=== PATIENT | male | born 1945 | race Caucasian/White ===

== ENCOUNTER 2018-11-01 18:03 | Inpatient (IN) | payer MEDICARE, BC ==
[~2018-11-01] VITALS: Ht 198.1 cm; Wt 95.5 kg
[2018-11-01] MEDS ORDERED: SODIUM CHLORIDE 0.9% 1000ML 1,000 ML IV STA (18:51)
[2018-11-01] MEDS ORDERED: MORPHINE SULFATE 2 MG/ML SYR IV NR (19:00)
[2018-11-01] MEDS ORDERED: ONDANSETRON HCL INJ 2 MG/ML VIAL IV NR (19:00)
[2018-11-01 19:03] LABS: BASOPHILS % 0.4 % (0.0-1.0); EOSINOPHILS # (AUTO) 0.2 (0.0-0.4); EOSINOPHILS % 2.1 % (0.0-6.0); HEMOGLOBIN 13.2 g/dL (14.0-18.0); LYMPHOCYTES # (AUTO) 1.4 (1.0-3.2); LYMPHOCYTES % 18.8 % (18.0-39.1); MEAN CORPUSCULAR HEMOGLOBIN 30.3 pg (28-32); MEAN CORPUSCULAR HGB CONC 33.8 g/dL (31-35); MEAN CORPUSCULAR VOLUME 89.7 fL (81-99); MONOCYTES # (AUTO) 0.5 (0.2-0.8); MONOCYTES % 7.2 % (4.4-11.3); NEUTROPHILS # (AUTO) 5.1 (2.1-6.9); NEUTROPHILS % 70.7 % (38.7-80.0); PLATELET COUNT 215 x10e3/uL (140-360); RED BLOOD COUNT 4.35 x10e6/uL (4.3-5.7)
[2018-11-01 19:08] LABS: INR 0.95; PROTHROMBIN TIME 13.6 seconds (11.9-14.5)
[2018-11-01 19:09] LABS: PARTIAL THROMBOPLASTIN TIME 29.8 seconds (23.8-35.5)
[2018-11-01 19:18] LABS: ALBUMIN 3.4 g/dL (3.5-5.0); ALBUMIN/GLOBULIN RATIO 1.1 (0.8-2.0); ANION GAP 24.7 mmol/L (8-16); CALCIUM 9.2 mg/dL (8.4-10.2); CREATININE, SERUM 16.07 mg/dL (0.72-1.25); MAGNESIUM 2.3 MG/DL (1.3-2.1); POTASSIUM 4.7 mmol/L (3.5-5.1)
[2018-11-01 19:37] LABS: BILIRUBIN,URINE NEGATIVE (NEGATIVE); CLARITY,URINE CLEAR (CLEAR); COLOR,URINE YELLOW (YELLOW); KETONES,URINE NEGATIVE (NEGATIVE); LEUKOCYTE ESTERASE ,URINE NEGATIVE (NEGATIVE); NITRITE,URINE NEGATIVE (NEGATIVE); PROTEIN,URINE DIPSTICK NEGATIVE (NEGATIVE); URINE UROBILINOGEN 0.2 mg/dL (0.2 - 1)
[2018-11-01 19:46] LABS: AMORPHOUS SEDIMENT,URINE FEW (FEW); BACTERIA,URINE FEW /HPF; MUCUS,URINE RARE (RARE); WBC,URINE (MAN) 0-5 /HPF (0-5)
--- NOTE | 2018-11-01 19:54 | Diagnostic Imaging Report ---
EXAMINATION: CHEST SINGLE (PORTABLE) COMPARISON: None INDICATION: Weakness, constipation, incontinence DISCUSSION: Frontal view of the chest obtained at 1935 hours. HEART AND MEDIASTINUM: The heart is normal in size. The aorta is ectatic. Central pulmonary vasculature is mildly prominent. LINES: None. LUNGS: The lungs are well inflated and clear. No mass or infiltrate. PLEURA: No pleural effusion or pneumothorax. BONES AND SOFT TISSUES: No focal osseous lesion. The soft tissues are normal. IMPRESSION: Mild vascular congestion. No acute pulmonary process. Signed by: Dr. Candace Quigley MD on 11/01/2018 7:50 PM
[2018-11-01] MEDS ORDERED: HYDROCODONE/APAP 7.5MG-325MG 1 EA TAB PO NR (20:03)
[2018-11-01] MEDS ORDERED: TAMSULOSIN HCL0.4 MG (20:03)
--- NOTE | 2018-11-01 20:03 | Diagnostic Imaging Report ---
CT Abdomen and Pelvis without contrast INDICATION: Weakness, constipation, incontinence TECHNIQUE: Thin collimation axial images obtained from the diaphragm to the level of the pubic symphysis without nonionic intravenous contrast. Dose reduction techniques used: Automated exposure control, adjustment of the mAs and/or kVp according to patient size, standardized low-dose protocol, and/or iterative reconstruction technique. RADIATION DOSE: Total DLP: 730.9 mGy*cm Estimated effective dose: (DLP x 0.015 x size factor) mSv CTDIvol has been reviewed. It is below the limits set by the Radiation Protocol Committee (RPC). COMPARISON: None. ABDOMEN FINDINGS: Lung Bases: Clear. The visualized portion of the mediastinum is normal. Liver: Decreased attenuation. No mass. Gallbladder: Absent. No ductal dilatation. Pancreas: Atrophic. No mass or ductal dilatation. Spleen: Normal size and contains a calcified granuloma. Adrenal Glands: No evidence for mass. Kidneys: Right: No intrarenal calculus. Exophytic cyst in the lateral interpolar cortex measures 4.4 x 3.8 cm. The collecting system is dilated. No perinephric fluid collection. Left: Hyperattenuating eccentric focus in the renal pelvis measures 8 mm.. The renal collecting system is distended. A linear hyperattenuating focus in the infundibulum of the lower pole measures 5 mm. Neither have the usual appearance of calculi. There are multiple renal cysts with an exophytic lower pole cyst measuring 6.6 cm. No perinephric fluid collections. There is bilateral inflammation of the pararenal fat planes. Lymph Nodes: No enlarged abdominal or retroperitoneal lymph nodes.. Aorta: Ectatic and diffusely calcified PELVIS FINDINGS: Bowel: Stomach: Normal. Small Bowel: Normal in caliber with normal wall thickness. Large Bowel: Diverticulosis coli. No associated inflammation. No large bowel dilatation. Appendix: Normal. Bladder: Collapsed around a Hogan catheter. The prostate gland is enlarged.. Ureters: The right ureter is mildly distended throughout its course without evidence of calculus. The left ureter is mildly distended throughout its course, but less so compared to the right ureter. Again, no evidence of calculus. Trace amount of presacral edema. No loculated fluid collection. Bones: Degenerative changes of the spine superimposed on diffuse scoliosis. No focal osseous lesions. Soft tissues: There are bilateral vasectomy clips. Postoperative changes of the left inguinal region suggestive hernia repair. No hernia recurrence.. IMPRESSION: 1. Bilateral hydroureteronephrosis without etiology on this exam. 2. Subcentimeter high attenuating foci in an infundibulum of the left kidney and the left renal pelvis. These may represent calculi but urothelial tumors cannot be excluded. 3. Bilateral renal cysts. Bilateral perinephric inflammation may be the result of volume replenishment or infection. Please correlate with urinalysis/urine culture. 4. Steatosis. Diverticulosis coli. No evidence for bowel obstruction or inflammation. Signed by: Dr. Candace Quigley MD on 11/01/2018 7:59 PM
--- NOTE | 2018-11-01 20:04 | NUR ---
MEDS GIVEN PER DR'S ORDERS AND PT HAS TOLERATED WELL.
[2018-11-01] MEDS ORDERED: CIALIS20 MG (21:01)
[2018-11-01] MEDS ORDERED: ADCIRCA20 MG (21:01)
[2018-11-01] MEDS ORDERED: FENTANYL CITRATE/PF 100MCG/2 ML INJ IV NR (21:02)
[2018-11-01] MEDS ORDERED: FENTANYL CITRATE/PF 100MCG/2 ML INJ ONE (21:09)
[2018-11-01] MEDS: SODIUM CHLORIDE 0.9% 1000ML 1,000 ML IV SCH (21:20)
--- NOTE | 2018-11-01 21:20 | NUR ---
PAIN MEDS GIVEN --25MCG OF FENTANYL AND IVF STARTED AND PT HAS TOLERATED WELL.
--- OUTSIDE RECORDS SUMMARY | 2018-11-01 21:27 | XMS REPORT ---
Author Author [facility] Address Unknown Phone Unavailable Care Team Providers Care Marketing Executive Name Role Phone Pippa ISRAEL Unavailable Unavailable Problems This patient has no known problems. Allergies, Adverse Reactions, Alerts This patient has no known allergies or adverse reactions. Medications This patient has no known medications. Results Test Description Test Time Test Comments Text Results Atomic Results Result Comments CT ABDOMEN/PELVIS WO 2018-11-01 19:51:00 [facility] [address] [address] Patient Name: HILARIO GARCIA MR #: [id number] : 1945 Age/Sex: 73/M Req #: [id number] Adm Physician: Ordered by: RUBEN ISRAEL MD Report #: [id number] Location: ER Room/Bed: Procedure: [id number] CT/CT ABDOMEN/PELVIS WO Exam Date: 11/01/18 Exam Time: 1919 REPORT STATUS: Signed CT Abdomen and Pelvis without contrast INDICATION: Weakness, constipation, incontinence TECHNIQUE: Thin collimation axial images obtained from the diaphragm to the level of the pubic symphysis without nonionic intravenous contrast. Dose reduction techniques used: Automated exposure control, adjustment of the mAs and/or kVp according to patient size, standardized low-dose protocol, and/or iterative reconstruction technique. RADIATION DOSE: Total DLP: 730.9 mGy*cm Estimated effective dose: (DLP x 0.015 x size factor) mSv CTDIvol has been reviewed. It is below the limits set by the Radiation Protocol Committee (RPC). COMPARISON: None. ABDOMEN FINDINGS: Lung Bases: Clear. The visualized portion of the mediastinum is normal. Liver: Decreased attenuation. No mass. Gallbladder: Absent. No ductal dilatation. Pancreas: Atrophic. No mass or ductal dilatation. Spleen: Normal size and contains a calcified granuloma. Adrenal Glands: No evidence for mass. Kidneys: Right: No intrarenal calculus. Exophytic cyst in the lateral interpolar cortex measures 4.4 x 3.8 cm. The collecting system is dilated. No perinephric fluid collection. Left: Hyperattenuating eccentric focus in the renal pelvis measures 8 mm.. The renal collecting system is distended. A linear hyperattenuating focus in the infundibulum of the lower pole measures 5 mm. Neither have the usual appearance of calculi. There are multiple renal cysts with an exophytic lower pole cyst measuring 6.6 cm. No perinephric fluid collections. There is bilateral inflammation of the pararenal fat planes. Lymph Nodes: No enlarged abdominal or retroperitoneal lymph nodes.. Aorta: Ectatic and diffusely calcified PELVIS FINDINGS: Bowel: Stomach: Normal. Small Bowel: Normal in caliber with normal wall thickness. Large Bowel: Diverticulosis coli. No associated inflammation. No large bowel dilatation. Appendix: Normal. Bladder: Collapsed around a Hogan catheter. The prostate gland is enlarged.. Ureters: The right ureter is mildly distended throughout its course without evidence of calculus. The left ureter is mildly distended throughout its course, but less so compared to the right ureter. Again, no evidence of calculus. Trace amount of presacral edema. No loculated fluid collection. Bones: Degenerative changes of the spine superimposed on diffuse scoliosis. No focal osseous lesions. Soft tissues: There are bilateral vasectomy clips. Postoperative changes of the left inguinal region suggestive hernia repair. No hernia recurrence.. IMPRESSION: 1. Bilateral hydroureteronephrosis without etiology on this exam. 2. Subcentimeter high attenuating foci in an infundibulum of the left kidney and the left renal pelvis. These may represent calculi but urothelial tumors cannot be excluded. 3. Bilateral renal cysts. Bilateral perinephric inflammation may be the result of volume replenishment or infection. Please correlate with urinalysis/urine culture. 4. Steatosis. Diverticulosis coli. No evidence for bowel obstruction or inflammation. Signed by: Dr. Ulysses Quigley MD on 11/01/2018 7:59 PM Dictated By: ULYSSES QUIGLEY MD 58 Transcribed By: VIRGILIO on 11/01/181958 COPY TO: RUBEN ISRALE MD CHEST SINGLE (PORTABLE) 2018-11-01 19:49:00 [address] [address] Patient Name: HILARIO GARCIA MR #: [id number] : 1945 Age/Sex: 73/M Req #: [id number] Adm Physician: Ordered by: RUBEN ISRAEL MD Report #: [id number] Location: ER Room/Bed: Procedure: [id number] DX/CHEST SINGLE (PORTABLE) Exam Date: 11/01/18 Exam Time: 1929 REPORT STATUS: Signed EXAMINATION: CHEST SINGLE (PORTABLE) CHARLENE RISON: None INDICATION: Weakness, constipation, incontinence DISCUSSION: Frontal view of the chest obtained at 1935 hours. HEART AND MEDIASTINUM: The heart is normal in size. The aorta is ectatic. Central pulmonary vasculature is mildly prominent. LINES: None. LUNGS: The lungs are well inflated and clear. No mass or infiltrate. PLEURA: No pleural effusion or pneumothorax. BONES AND SOFT TISSUES: No focal osseous lesion. The soft tissues are normal. IMPRESSION: Mild vascular congestion. No acute pulmonary process. Signed by: Dr. Ulysses Quigley MD on 11/01/2018 7:50 PM Dictated By: ULYSSES QUIGLEY MD 49 Transcribed By: VIRGILIO on 11/01/181949 COPY TO: RUBEN ISRALE MD
[2018-11-01] MEDS ORDERED: LIDOCAINE JELLY 2% 10ML URO-JET TOP ONE (21:30)
--- NOTE | 2018-11-01 21:35 | NUR ---
UROJET INJECTED TO PENIS FOR PENILE PAIN, PT TOELRATED WELL.
--- NOTE | 2018-11-01 22:21 | NUR ---
reported off to leslee lakhani for continuity of care
--- NOTE | 2018-11-01 22:21 | NUR ---
REPORT RC'D FROM Marissa WHITFIELD RN. ASSUMED CARE OF PT AT THIS TIME.
[2018-11-01] MEDS ORDERED: ONDANSETRON HCL INJ 2 MG/ML VIAL ONE (23:43)
[2018-11-01] MEDS: MORPHINE SULFATE INJ 4 MG/ML INJ IV PRN ×2 (23:46→23:47)
[2018-11-01] MEDS ORDERED: ONDANSETRON HCL INJ 2 MG/ML VIAL IV STA ×2 (23:46)
[2018-11-02] VITALS (10 sets, daily range): BP systolic 130–169; BP diastolic 77–97
[2018-11-02] MEDS: SODIUM CHLORIDE 0.9% 1000ML 1,000 ML IV SCH ×3 (00:35→20:42)
--- NOTE | 2018-11-02 03:37 | NUR ---
Report received from ER nurse Ryan.Patient admitted in unit @0115 by stretcher. Patient received alert/oriented x3,denied pain and no SOB. Respiration even and unlabored.V/S WNL. Head to toe assessment completed. No skin breakdown noted. Patient son in the room. Patient instructed to call for help as needed,verbalized and understand. Bed in lower position,locked. Will continue to monitor.
[2018-11-02] MEDS ORDERED: MORPHINE SULFATE 2 MG/ML SYR IV PRN (04:00)
--- NOTE | 2018-11-02 04:04 | NUR ---
Received patient calm in bed, vitals stable no complaints raised, on Dilaudid and Tylenol prn for pain
[2018-11-02 06:57] LABS: BASOPHILS % 0.4 % (0.0-1.0); EOSINOPHILS # (AUTO) 0.2 (0.0-0.4); EOSINOPHILS % 2.3 % (0.0-6.0); HEMATOCRIT 35.1 % (38.2-49.6); HEMOGLOBIN 11.9 g/dL (14.0-18.0); LYMPHOCYTES # (AUTO) 2.1 (1.0-3.2); LYMPHOCYTES % 26.7 % (18.0-39.1); MEAN CORPUSCULAR HEMOGLOBIN 30.1 pg (28-32); MEAN CORPUSCULAR HGB CONC 33.9 g/dL (31-35); MEAN CORPUSCULAR VOLUME 88.6 fL (81-99); MONOCYTES # (AUTO) 0.8 (0.2-0.8); MONOCYTES % 9.9 % (4.4-11.3); NEUTROPHILS # (AUTO) 4.7 (2.1-6.9); NEUTROPHILS % 60.3 % (38.7-80.0); PLATELET COUNT 190 x10e3/uL (140-360); RED BLOOD COUNT 3.96 x10e6/uL (4.3-5.7); RED CELL DISTRIBUTION WIDTH 13.1 % (11.7-14.4)
[2018-11-02 07:13] LABS: ALBUMIN 3.1 g/dL (3.5-5.0); ALBUMIN/GLOBULIN RATIO 1.1 (0.8-2.0); ANION GAP 15.2 mmol/L (8-16); CALCIUM 8.7 mg/dL (8.4-10.2); CREATININE, SERUM 4.39 mg/dL (0.72-1.25); MAGNESIUM 1.8 MG/DL (1.3-2.1); PHOSPHORUS 3.5 MG/DL (2.3-4.7); POTASSIUM 4.2 mmol/L (3.5-5.1)
--- NOTE | 2018-11-02 07:13 | NUR ---
Report given to upcoming nurse Delia, walking round done.
--- NOTE | 2018-11-02 07:19 | NUR ---
RECEIVED PATIENT AT THIS TIME STATES "IF I DONT GET ANYTHING ELSE FOR PAIN IM GOING TO SCREAM" THIS RN AT NURSES STATION. PT SON AT NURSES STATION STATES "CAN WE PAGE THE DOCTOR LIKE WHEN ARE YOU GONNA DO IT," THIS RN EXPLAINED THAT IT WAS ALREADY BEING DONE " SON STATES OKAY WELL THEN DO IT NOW" THIS RN ASKED SON TO STEP OUT OF THE NURSES STATION THAT IT WAS ALREADY BEING DONE. SPOKE TO SRIDHAR RECEIVE ORDER TO CHANGE PAIN MEDICINE. CALLED PHARMACY ASKED TO VERIFY. WILL MEDICATE ACCORDING TO MAR.
[2018-11-02] MEDS: HYDROMORPHONE 2MG/ML 2 MG/ML ML IV PRN ×7 (07:25→23:43)
[2018-11-02] MEDS ORDERED: HYDROCODONE/APAP 10MG-325MG TAB PO PRN (09:00)
[2018-11-02] MEDS ORDERED: HYDRALAZINE HCL 20 MG/ML VIAL IV PRN (09:00)
[2018-11-02] MEDS ORDERED: ACETAMINOPHEN 325 MG TAB PO PRN (09:00)
[2018-11-02] MEDS: TAMSULOSIN HCL 0.4 MG CAP PO SCH (09:22)
--- NOTE | 2018-11-02 11:15 | NUR ---
PER YESTERDAY WHEN DE LA PAZ WAS PLACED 2400 WAS COLLECTED.
[2018-11-02] MEDS: ONDANSETRON HCL INJ 2 MG/ML VIAL IV PRN (13:46)
[2018-11-02] MEDS: ACETAMINOPHEN/CODEINE 300MG - 30MG TAB PO PRN ×2 (13:46→22:12)
--- NOTE | 2018-11-02 15:53 | NUR ---
Nutrition Intervention Note RD Recommendation(s) for Physician: -Continue cardiac diet as ordered -Rec Ensure Compact BID to promote PO intake -Encourage PO and hydration Plan of Care: RD following, monitoring for tolerance and adequacy Nutrition reason for involvement: Nutrition Risk Trigger MST RD Assessment 11/02 Chart reviewed. 73yo M, who is admitted for abdominal pain with vomiting. Pt was asleep during my visit. Son on bedside to provide hx. Pt lives alone in an apartment. Son states pt has not been eating much for over 2 weeks. Pt had a vomiting episode with abdominal pain yesterday, therefore son brought him into the hospital. Son doesnt know if pt lost any weight recently. UBW ~215 225lb. No complains of nausea or vomiting today. LBM 11/01. Pt only ate a few bites of breakfast this morning, per son. Pt has teeth implants but no chewing or swallowing difficulty reported. Pt has chronic tremors and cant hold utensils very well. RD will order chopped diet and finger foods upon son request. Will continue to monitor and follow. Principal Problems/Diagnoses: ARF, metabolic acidosis PMH: No H&P in chart GI: LBM 11/01 Skin: intact Labs: (11/02) Na 135 L, BUN 31 H, Creatinine 4.39 H Meds: zofran, IVF Ht: 68in Wt: 230lb BMI: 35kg/m2 IBW: 154lb Malnutrition Evaluation (11/02/18) The patient does not meet criteria for a specified degree of malnutrition at this time. Will re-evaluate at follow-up as appropriate. Nutrition Prescription (Diet Order): cardiac diet Diet Adequacy: Not meeting calorie needs, Not meeting protein needs Diet Education Needs Assessment: Diet education not indicated. Nutrition Care Level: low Nutrition Diagnosis: Inadequate oral intake related to current medical status as evidenced by poor appetite and PO intake. Goal: Patient will meet 75-100% of estimated needs by follow up Progress: N/A Interventions: Mineral-modified diet, Commercial beverage Monitoring/Evaluation: Total energy intake, Total protein intake, Modified diet, Liquid supplement, Weight change Signed: Miesha Warner MS, RD, LD
--- NOTE | 2018-11-02 19:30 | NUR ---
Received patient hemodynamically stable, notes previously entered in error for , 4am.
--- NOTE | 2018-11-02 20:15 | Diagnostic Imaging Report ---
Lumbar spine two views CPT code: 25612 Indication: Back pain, cancer (not specified) Technique: A.P. and lateral views of the lumbar spine obtained Comparison: CT abdomen/pelvis 11/01/2018 Findings: There are five non rib bearing vertebral bodies. There is mild scoliosis, similar to previous exam. No rotational component. The transverse processes are intact. The vertebral body heights are well maintained. There are prominent lateral osteophytes at L1 to and L2-3. Endplate osteophytes are also present in the remainder of the spine. There is diffuse disc space narrowing. No compression deformities. No focal osseous lesions. There is facet arthropathy at the lower levels. No abnormalities of the sacroiliac joints. The sacrum is normal. There is no evidence of subluxation. The bowel gas pattern is unremarkable. There are vascular calcifications throughout the aorta. Cholecystectomy clips are stable. IMPRESSION: Diffuse degenerative changes of the spine superimposed on mild scoliosis. No focal osseous lesions suggest metastasis. Bone scan or MRI are more sensitive modalities to detect osseous metastases or insufficiency fractures. Signed by: Dr. Candace Quigley MD on 11/02/2018 8:11 PM
--- NOTE | 2018-11-02 20:17 | Diagnostic Imaging Report ---
Sacrum and coccyx CPT code: 71509 History: Back pain, cancer (not specified) Comparison: CT abdomen/pelvis 11/01/2018 Findings: AP and lateral view of the sacrum and coccyx were obtained. No fractures or destructive changes were identified. There is facet arthropathy at the lower levels. No lytic or blastic lesions. IMPRESSION: No fracture or dislocation. No focal osseous lesions to suggest metastasis. Bone scan or MRI are more sensitive modalities to detect osseous metastases. Signed by: Dr. Candace Quigley MD on 11/02/2018 8:14 PM
--- NOTE | 2018-11-02 20:30 | NUR ---
patient taken for scheduled xray and brought back, given pain medicine, settled in bed
[2018-11-03] VITALS (11 sets, daily range): BP systolic 146–183; BP diastolic 62–97
--- NOTE | 2018-11-03 02:00 | NUR ---
patient calmly asleep in bed on prn medication for pain
[2018-11-03] MEDS: SODIUM CHLORIDE 0.9% 1000ML 1,000 ML IV SCH ×3 (03:30→20:03)
[2018-11-03] MEDS: HYDROMORPHONE 2MG/ML 2 MG/ML ML IV PRN ×2 (05:00→08:11)
[2018-11-03 05:26] LABS: BASOPHILS % 0.2 % (0.0-1.0); EOSINOPHILS # (AUTO) 0.1 (0.0-0.4); EOSINOPHILS % 1.4 % (0.0-6.0); HEMATOCRIT 36.5 % (38.2-49.6); HEMOGLOBIN 12.1 g/dL (14.0-18.0); LYMPHOCYTES # (AUTO) 1.3 (1.0-3.2); LYMPHOCYTES % 13.7 % (18.0-39.1); MEAN CORPUSCULAR HEMOGLOBIN 29.5 pg (28-32); MEAN CORPUSCULAR HGB CONC 33.2 g/dL (31-35); MONOCYTES # (AUTO) 0.9 (0.2-0.8); MONOCYTES % 10.3 % (4.4-11.3); NEUTROPHILS # (AUTO) 6.8 (2.1-6.9); NEUTROPHILS % 74.1 % (38.7-80.0); PLATELET COUNT 216 x10e3/uL (140-360); RED CELL DISTRIBUTION WIDTH 12.9 % (11.7-14.4)
[2018-11-03 05:38] LABS: ANION GAP 15.3 mmol/L (8-16); CALCIUM 8.7 mg/dL (8.4-10.2); CREATININE, SERUM 1.76 mg/dL (0.72-1.25); MAGNESIUM 1.8 MG/DL (1.3-2.1); POTASSIUM 4.3 mmol/L (3.5-5.1)
--- NOTE | 2018-11-03 07:05 | NUR ---
Handed over patient hemodynamically stable
[2018-11-03] MEDS: TAMSULOSIN HCL 0.4 MG CAP PO SCH ×2 (08:11→12:33)
[2018-11-03] MEDS: ONDANSETRON HCL INJ 2 MG/ML VIAL IV PRN ×2 (08:15→12:30)
[2018-11-03] MEDS ORDERED: HYDROCODONE/APAP 10MG-325MG TAB PO PRN (10:30)
[2018-11-03] MEDS ORDERED: MORPHINE SULFATE INJ 4 MG/ML INJ IV PRN (10:30)
[2018-11-03] MEDS ORDERED: BISACODYL 5 MG TAB EC PO PRN (10:30)
[2018-11-03] MEDS: AMLODIPINE BESYLATE 10 MG TAB PO SCH (12:33)
[2018-11-03] MEDS: POLYETHYLENE GLYCOL 3350 17 GM PACK PO SCH (16:08)
[2018-11-03] MEDS: ACETAMINOPHEN/CODEINE 300MG - 30MG TAB PO PRN ×2 (16:08→20:46)
[2018-11-03] MEDS: DOCUSATE SODIUM 100 MG CAP PO SCH (16:08)
--- NOTE | 2018-11-03 16:36 | NUR ---
PT Lurdes received. Visited pt but was asleep. Explained the purpose of the visit to his sister. Per sister, pt lives in a 2-story home and goes hunting every weekend. Active and (I). Pt woke up and stated that he does not want PT at this time. Informed nurse Nacny.
--- NOTE | 2018-11-03 19:30 | NUR ---
patient is awake alert oriented, no distress noted at this time, he is playing dominos with family member sitting on bed. vitals checked, will continue to monitor.
--- NOTE | 2018-11-03 20:52 | NUR ---
patient was calling asking for PRN Tylenol #3, complaining of pain. also he doesnt want to be awaken,he will call nurse around midnight when he is awaken for vitals signs to be checked. also he refuses the bed alarm to be turned on. farmer cath patent and draining, no distress noted, will continue to monitor.
--- NOTE | 2018-11-03 23:25 | NUR ---
checked patient blood pressure, its 172/87 now, patient refused to have PRN med for BP, he want to be checked again in 15 mins.
[2018-11-04] MEDS: ACETAMINOPHEN/CODEINE 300MG - 30MG TAB PO PRN (01:50)
[2018-11-04] MEDS: SODIUM CHLORIDE 0.9% 1000ML 1,000 ML IV SCH (04:42)
--- NOTE | 2018-11-04 04:42 | NUR ---
patient took off telemetry and refused to be put on back.
--- NOTE | 2018-11-04 05:15 | NUR ---
checked patient vitals, his blood pressure is 181/91 pulse 58. he refused BP med PRN, patient wants the nurse to come back and check it again later.
--- NOTE | 2018-11-04 05:17 | NUR ---
called and spoke with dr Ro, make him aware that patient has been refusing care, taking off telemetry and refused to have iv fluid on, he wanted to go home today. the MD ordered Ativan 1 mg iv now, and will re assess patient in the morning.
[2018-11-04 05:20] LABS: BASOPHILS % 0.5 % (0.0-1.0); EOSINOPHILS # (AUTO) 0.3 (0.0-0.4); EOSINOPHILS % 3.2 % (0.0-6.0); HEMATOCRIT 38.7 % (38.2-49.6); HEMOGLOBIN 12.8 g/dL (14.0-18.0); LYMPHOCYTES # (AUTO) 1.9 (1.0-3.2); LYMPHOCYTES % 23.9 % (18.0-39.1); MEAN CORPUSCULAR HEMOGLOBIN 29.4 pg (28-32); MEAN CORPUSCULAR HGB CONC 33.1 g/dL (31-35); MONOCYTES # (AUTO) 0.6 (0.2-0.8); MONOCYTES % 7.9 % (4.4-11.3); PLATELET COUNT 215 x10e3/uL (140-360); RED BLOOD COUNT 4.35 x10e6/uL (4.3-5.7); RED CELL DISTRIBUTION WIDTH 12.8 % (11.7-14.4)
[2018-11-04] MEDS ORDERED: LORAZEPAM INJ 2 MG/ML VIAL IV ONE (05:30)
[2018-11-04 05:43] LABS: ANION GAP 16.4 mmol/L (8-16); CALCIUM 8.9 mg/dL (8.4-10.2); CREATININE, SERUM 1.37 mg/dL (0.72-1.25); MAGNESIUM 2.2 MG/DL (1.3-2.1); POTASSIUM 4.4 mmol/L (3.5-5.1)
[2018-11-04 05:48] VITALS: BP 172/61
[2018-11-04 06:00] VITALS: BP 161/74
--- NOTE | 2018-11-04 06:57 | NUR ---
bedside reports given to upcoming nurse Howard RN, patient is awake alert oriented, stated pain level is zero, no distress noted, family member on bed side.
[2018-11-04 08:05] VITALS: BP 166/84
[2018-11-04] MEDS: TAMSULOSIN HCL 0.4 MG CAP PO SCH (08:25)
[2018-11-04] MEDS: DOCUSATE SODIUM 100 MG CAP PO SCH (08:25)
[2018-11-04] MEDS: POLYETHYLENE GLYCOL 3350 17 GM PACK PO SCH (08:25)
[2018-11-04] MEDS: AMLODIPINE BESYLATE 10 MG TAB PO SCH (08:26)
[2018-11-04] MEDS ORDERED: HYDROCODONE/APAP 10MG-325MG TAB PO PRN (08:45)
[2018-11-04] MEDS ORDERED: NIFEDIPINE CR 30 MG TAB PO SCH (09:15)
[2018-11-04] MEDS ORDERED: NIFEDIPINE ER30 M1 PO (09:21)
[2018-11-04] MEDS ORDERED: TYLENOL # 31 EA PO (09:21)
[2018-11-04] MEDS ORDERED: ONDANSETRON ODT8 MG PO (09:21)
[2018-11-04] MEDS ORDERED: COLACE100 M1 PO (09:21)
[2018-11-04 09:45] VITALS: BP 128/75
--- NOTE | 2018-11-04 09:58 | NUR ---
Pt given leg bag, extra caps, and Statlocks, demonstrated correct maintenance techniques. Pt verbalized understanding of meatal and andreia care at least twice a day, MD Santoyo paged, returned call. Notified that pt is to be discharged home, read chemistry labs with read back. MD Santoyo states that pt is okay to discharge, that he will not prescribe any additional meds, and that pt is to follow up in 1-2 weeks.
[2018-11-04 10:25] VITALS: BP 152/89
--- NOTE | 2018-11-04 20:25 | Discharge Summary ---
ADMISSION DIAGNOSES 1. Left kidney stone. 2. Acute kidney injury versus chronic kidney disease. 3. Hyponatremia. 4. Bradycardia. 5. Benign prostatic hypertrophy. DISCHARGE DIAGNOSES 1. Left kidney stone. 2. Acute kidney injury versus chronic kidney disease. 3. Hyponatremia. 4. Bradycardia. 5. Benign prostatic hypertrophy. 6. Rule out urinary tract infection. 7. Rule out bacteremia. 8. Hypermagnesemia. HISTORY: Patient has a history of BPH, hiatal hernia. SURGICAL HISTORY: Right inguinal hernia repair and cholecystectomy. FAMILY HISTORY: Patient's grandma had diabetes and patient's grandpa had cancer. SOCIAL HISTORY: Patient smokes 1 pack of cigarettes a day for 54 years. He occasionally drinks alcohol and smokes weed daily, about 2 to 3 joints per day. HOSPITAL COURSE: A 73-year-old male complains of bilateral lower back pain and bilateral lower quadrant abdominal pain, which was sharp, cramping, and constant for the last 2 weeks. He also admits to having difficulty urinating. He denies hematuria and fever. He denies history of kidney stones. On the day of discharge, the abdominal pain resolved after placing a Hogan, but the pain remains on the left lower back. He came to the ER after being persuaded by his son. On admission, patient was started on IV fluids. Chest x-rays showed mild vascular congestion. CT of the abdomen showed bilateral hydroureteronephrosis without etiology on this exam. Subcentimeter high attenuating foci in the bi-fundibulum of the left kidney and left renal pelvis. These may present calculi, but urothelial tumors cannot be excluded. Bilateral renal cyst steatosis. X-ray of the sacrum and coccyx showed no fracture or dislocation. No focal obvious lesions to suggest metastasis. Diffuse degenerative changes of the spine superimposed on mild scoliosis. No focal obtuse lesions suggest metastasis. Blood cultures were negative. Urine culture was negative. On admission, patient's creatinine was 16, GFR was 3. IV fluids were started on the very next day. The creatinine came down to 4.3 with GFR of 13. Urology was consulted who said to keep the Hogan in and follow up outpatient for studies in 2 to 3 weeks. Prior to discharge, patient was refusing any more IV fluids and barely asking for pain medicine. He will discharge home with family. He will resume home medicines plus Tylenol 3 p.r.n., Colace, nifedipine, and Zofran p.r.n. He will follow up with Dr. Christie in 2 to 3 weeks and primary care in 1 to 2 weeks. Patient and family understand discharge instructions and agree to plan. Vital signs stable. Patient afebrile. Dictated by: Katey Cruz NP Job#: [id number] RTY
== END 2018-11-04 10:43 | disposition home or self-care (01) | DRG 683 ==
LOC: ER 18:03 → ERHOLD 21:24 → IMCU 11-02 01:41
PROVIDERS: ADMIT Internal Medicine; ATTEND Internal Medicine
DX: N17.9 Acute kidney failure, unspecified (principal); E87.1 Hypo-osmolality and hyponatremia; N20.0 Calculus of kidney; N18.9 Chronic kidney disease, unspecified; R00.1 Bradycardia, unspecified; N40.1 Benign prostatic hyperplasia with lower urinary tract symptoms; R33.8 Other retention of urine; K44.9 Diaphragmatic hernia without obstruction or gangrene; E83.41 Hypermagnesemia; N13.30 Unspecified hydronephrosis; N28.1 Cyst of kidney, acquired; Z83.3 Family history of diabetes mellitus; Z80.9 Family history of malignant neoplasm, unspecified; Z28.21 Immunization not carried out because of patient refusal
CPT/HCPCS: 36415; 71045; 72100; 72220; 74176; 80048; 80053; 80329; 81001; 82550; 82553; 83605; 83735; 84100; 84484; 85025; 85610; 85730; 87040; 87086; 93005; 96374; 96375; 97139; 99284; J0360; J2060; J2270; J2405; J7030

== ENCOUNTER 2018-12-17 20:17 | Emergency (ER) | payer MEDICARE, BC ==
[~2018-12-17] VITALS: Ht 198.1 cm; Wt 95.3 kg
[~2018-12-17 20:17] MED LIST: ADCIRCA20 MG; CIALIS20 MG; COLACE100 M1 PO; NIFEDIPINE ER30 M1 PO; ONDANSETRON ODT8 MG PO; TAMSULOSIN HCL0.4 MG; TYLENOL # 31 EA PO
--- NOTE | 2018-12-17 20:58 | NUR ---
DR WELCH SPOKE WITH DR ROXANA SIMMONS ON CELL PHONE NUMBER PROVIDED BY PATIENT, REQUESTED BLADDER SCAN. BLADDER SCAN PERFORMED, 1ST SCAN >999ML, SECOND SCAN 987ML STENT WAS REMOVED BY DR WELCH BY PULLING BLACK STRING AND RELEASING FLUID FROM STENT AND THEN REMOVED BY PULLING ON GREEN STRING. TOLERATED WELL. PT ATTEMPTED TO VOID, STATES UNABLE TO VOID. DR WELCH ORDERED DE LA PAZ CATH. 18FR COUDE DE LA PAZ PLACED USING STERILE TECHNIQUE. APPROX 900 CLEAR YELLOW RETURN WITH RELIEF OF PAIN. DE LA PAZ PLACED TO BEDSIDE DRAINAGE. DR WELCH INFORMED.
== END 2018-12-17 22:06 | disposition home or self-care (01) ==
LOC: ER 20:17
DX: R33.9 Retention of urine, unspecified (principal); N40.1 Benign prostatic hyperplasia with lower urinary tract symptoms
CPT/HCPCS: 51700; 99282

== ENCOUNTER 2021-09-21 18:34 | Emergency (ER) | payer MEDICARE, BC ==
[~2021-09-21] VITALS: Ht 198.1 cm; Wt 102.1 kg
[2021-09-21] MEDS ORDERED: KETOROLAC TROMETHAMINE 30 MG/ML VIAL IV STA (20:13)
[2021-09-21] MEDS ORDERED: SODIUM CHLORIDE 0.9% 1000ML 1,000 ML IV SCH (20:15)
[2021-09-21] MEDS ORDERED: CEFTRIAXONE 1 GM in SODIUM CHLORIDE 0.9% 50ML 50 ML IV ONE (20:15)
[2021-09-21] MEDS ORDERED: SODIUM CHLORIDE 0.9% 50ML 50 ML ONE ×2 (21:07→21:20)
[2021-09-21] MEDS ORDERED: IOPAMIDOL 370 MG/ML 200 ML INFUS..BTL INJ ONE (21:07)
[2021-09-21] MEDS ORDERED: KETOROLAC TROMETHAMINE 30 MG/ML VIAL ONE (21:19)
[2021-09-21] MEDS ORDERED: SODIUM CHLORIDE 0.9% 1000ML 1,000 ML ONE (21:20)
[2021-09-21] MEDS ORDERED: CEFTRIAXONE 1 GM VIAL ONE (21:20)
[2021-09-21] MEDS ORDERED: CEFUROXIME500 MG PO (22:42)
[2021-09-21 22:59] VITALS: BP 170/90
== END 2021-09-21 22:57 | disposition home or self-care (01) ==
LOC: FSED 19:08
DX: N39.0 Urinary tract infection, site not specified (principal); N40.1 Benign prostatic hyperplasia with lower urinary tract symptoms; N21.0 Calculus in bladder; M54.50 Low back pain, unspecified; F43.10 Post-traumatic stress disorder, unspecified; F17.210 Nicotine dependence, cigarettes, uncomplicated
CPT/HCPCS: 74177; 87086; 99284; J0696; J1885; J7030; Q9967

== ENCOUNTER 2023-02-16 06:20 | Emergency (ER) | payer MEDICARE, BC ==
[~2023-02-16] VITALS: Ht 198.1 cm; Wt 102.1 kg
[~2023-02-16 06:20] MED LIST changes: +CEFUROXIME500 MG PO
[2023-02-16] MEDS ORDERED: ONDANSETRON HCL INJ 2MG/ML 2ML 2 MG/ML VIAL IV STA (06:35)
[2023-02-16] MEDS ORDERED: SODIUM CHLORIDE 0.9% 1000ML 1,000 ML IV SCH (06:45)
[2023-02-16] MEDS ORDERED: KETOROLAC TROMETHAMINE 30 MG/ML VIAL IV STA (06:59)
[2023-02-16] MEDS ORDERED: KETOROLAC TROMETHAMINE 30 MG/ML VIAL ONE (07:52)
[2023-02-16] MEDS ORDERED: CEFTRIAXONE 1 GM VIAL ONE (07:52)
[2023-02-16] MEDS ORDERED: ONDANSETRON HCL INJ 2MG/ML 2ML 2 MG/ML VIAL ONE (07:52)
[2023-02-16] MEDS ORDERED: SODIUM CHLORIDE 0.9% 1000ML 1,000 ML ONE (07:52)
[2023-02-16] MEDS ORDERED: CIPRO500 MG PO (08:18)
[2023-02-16] MEDS ORDERED: AUGMENTIN 500-1 EACH PO (08:18)
[2023-02-16 08:59] VITALS: BP 170/86
== END 2023-02-16 09:02 | disposition home or self-care (01) ==
LOC: FSED 06:36
DX: N30.01 Acute cystitis with hematuria (principal); F43.10 Post-traumatic stress disorder, unspecified
CPT/HCPCS: 74176; 87086; 87186; 99284; J0696; J1885; J2405; J7030

== ENCOUNTER 2023-02-20 11:00 | Emergency (ER) | payer MEDICARE, BC ==
[~2023-02-20] VITALS: Ht 198.1 cm; Wt 102.1 kg
[~2023-02-20 11:00] MED LIST changes: +AUGMENTIN 500-1 EACH PO; +CIPRO500 MG PO
== END 2023-02-20 13:01 | disposition home or self-care (01) ==
LOC: FSED 11:04
DX: D64.9 Anemia, unspecified (principal); R31.9 Hematuria, unspecified; M25.512 Pain in left shoulder
CPT/HCPCS: 99283

== ENCOUNTER 2023-04-27 08:43 | Emergency (ER) | payer MEDICARE, BC ==
[~2023-04-27] VITALS: Ht 198.1 cm; Wt 102.1 kg
[2023-04-27] MEDS ORDERED: CEFDINIR300 MG PO (09:09)
[2023-04-27 09:12] VITALS: O2SAT 98
== END 2023-04-27 10:10 | disposition home or self-care (01) ==
LOC: ER 08:52
DX: R33.9 Retention of urine, unspecified (principal); N30.00 Acute cystitis without hematuria; C61 Malignant neoplasm of prostate
CPT/HCPCS: 51703; 99283